=== PATIENT | male | born 1995 | race Hispanic/Latino ===

== ENCOUNTER 2018-01-11 11:15 | Emergency (ER) | payer SELFPAY ==
[2018-01-11] MEDS ORDERED: CEFTRIAXONE SODIUM 500 MG VIAL ONE (11:43)
[2018-01-11] MEDS ORDERED: AZITHROMYCIN 250 MG TABLET PO ONE (11:43)
[2018-01-11] MEDS ORDERED: LIDOCAINE HCL-MPF 1% 2ML VIAL ONE (11:43)
[2018-01-11 11:48] LABS: APPEARANCE,URINE Clear (CLEAR); BILIRUBIN,URINE Negative (NEGATIVE); COLOR,URINE Yellow (YELLOW); GLUCOSE, URINE (UA) Negative (NEGATIVE); KETONES,URINE Negative (NEGATIVE); LEUKOCYTE ESTERASE ,URINE Negative (NEGATIVE); NITRATE,URINE Negative (NEGATIVE); OCCULT BLOOD,URINE Negative (NEGATIVE); PROTEIN,URINE Negative (NEGATIVE); UROBILINOGEN,URINE 0.2 mg/dL (0.2-1.0)
== END 2018-01-11 12:40 | disposition home or self-care (01) ==
LOC: EDH 11:15
DX: A64 Unspecified sexually transmitted disease (principal); Z72.0 Tobacco use
CPT/HCPCS: 81003; 87486; 87797; 96372; 99284; J0696; J3490

== ENCOUNTER 2018-12-09 15:40 | Emergency (ER) | payer OTHER ==
[2018-12-09] MEDS ORDERED: SODIUM CHLORIDE 0.9% 1000ML 1,000 ML IV ONE (15:41)
[2018-12-09] MEDS ORDERED: FAMOTIDINE/PF 20 MG/2 ML VIAL IV ONE (16:28)
[2018-12-09] MEDS ORDERED: ONDANSETRON HCL 4 MG/2 ML VIAL ONE (16:28)
[2018-12-09 17:12] LABS: CREATININE 1.4 mg/dL (0.5-1.5); POTASSIUM 4.4 mmol/L (3.5-5.1)
[2018-12-09 17:17] LABS: ALBUMIN 5.2 g/dL (3.5-5.0); TOTAL PROTEIN, SERUM 9.7 g/dL (6.0-8.3)
[2018-12-09 17:45] LABS: BASOPHILS % (AUTO) 0.1 % (0.0-5.0); EOSINOPHILS % (AUTO) 0.2 % (0.0-8.0); HEMATOCRIT 46.9 % (42-54); LYMPHOCYTES % (AUTO) 6.4 % (21.0-51.0); MEAN CORPUSCULAR HEMOGLOBIN 30.2 pg (27.0-33.0); MEAN CORPUSCULAR HGB CONC 34.2 g/dL (32.0-36.0); MEAN CORPUSCULAR VOLUME 88.4 fL (80-100); MONOCYTES % (AUTO) 6.6 % (3.0-13.0); NEUTROPHILS % (AUTO) 86.7 % (40.0-77.0); PLATELET COUNT (AUTO) 155 K/uL (130-400); RED BLOOD CELL COUNT(AUTO) 5.31 MIL/uL (4.50-6.20); RED CELL DISTRIBUTION WIDTH 13.1 % (11.0-15.5); WHITE BLOOD COUNT (AUTO) 9.5 K/uL (4.8-10.8)
== END 2018-12-09 18:20 | disposition home or self-care (01) ==
LOC: EDH 15:40
DX: A08.4 Viral intestinal infection, unspecified (principal); R11.2 Nausea with vomiting, unspecified; Z72.0 Tobacco use
CPT/HCPCS: 36415; 80053; 83690; 85025; 96361; 96374; 96375; 99284; J2405; J3490; J7030

== ENCOUNTER 2019-09-24 10:05 | Emergency (ER) | payer SELFPAY ==
[2019-09-24] MEDS ORDERED: CEFTRIAXONE SODIUM 500 MG VIAL ONE (10:16)
[2019-09-24] MEDS ORDERED: AZITHROMYCIN 250 MG TABLET PO ONE (10:17)
[2019-09-24] MEDS ORDERED: LIDOCAINE HCL-MPF 1% 2ML VIAL ONE (10:17)
== END 2019-09-24 10:45 | disposition home or self-care (01) ==
LOC: EDH 10:05
DX: N34.2 Other urethritis (principal); A64 Unspecified sexually transmitted disease; Z72.0 Tobacco use
CPT/HCPCS: 99281; J0696; J3490

== ENCOUNTER 2019-10-19 10:48 | Emergency (ER) | payer SELFPAY | END 2019-10-19 12:17 | disposition home or self-care (01) | LOC: EDH 10:48 | DX: S60.221A Contusion of right hand, initial encounter (principal); Z72.0 Tobacco use; X58.XXXA Exposure to other specified factors, initial encounter; Y93.89 Activity, other specified; Y92.89 Other specified places as the place of occurrence of the external cause; Y99.8 Other external cause status | CPT/HCPCS: 73130 ==

== ENCOUNTER 2019-11-02 04:34 | Emergency (ER) | payer OTHER, SELFPAY ==
[2019-11-02] MEDS ORDERED: LIDOCAINE HCL 2% VISCOUS 15 ML UDCUP ONE (04:58)
[2019-11-02] MEDS ORDERED: MAG HYDROX/AL HYDROX/SIMETH ES 30 ML SUSP UDCUP ONE (04:58)
[2019-11-02] MEDS ORDERED: IBUPROFEN 200 MG TAB ONE (04:59)
[2019-11-02] MEDS ORDERED: PENICILLIN G BENZATHINE LA 1.2 MILUNITS/2 ML SYG ONE (05:01)
[2019-11-02] MEDS ORDERED: DEXAMETHASONE 4 MG TAB ONE (05:02)
[2019-11-02] MEDS ORDERED: ACETAMINOPHEN 325 MG TAB ONE (05:04)
== END 2019-11-02 05:43 | disposition home or self-care (01) ==
LOC: EDH 04:34
DX: J02.9 Acute pharyngitis, unspecified (principal); Z72.0 Tobacco use
CPT/HCPCS: 96372; 99284; J0561; J8540